=== PATIENT | male | born 1960 | race Caucasian/White ===

== ENCOUNTER 2018-06-18 08:36 | Day surgery (SDC) | payer BC ==
[~2018-06-18] VITALS: Ht 182.9 cm; Wt 99.8 kg
--- NOTE | ~2018-06-18 | OP ---
PATIENT NAME: RERE ODONNELL MEDICAL RECORD: [id number] :60 LOCATION:[facility]GE ADMISSION DATE: SURGEON: PATSY WADE MD DATE OF OPERATION: 06/18/2018 PREOPERATIVE DIAGNOSES: Bilateral nasal polyposis, nasal obstruction, septal deviation and bilateral inferior turbinate hypertrophy. POSTOPERATIVE DIAGNOSES: Bilateral nasal polyposis, nasal obstruction, septal deviation and bilateral inferior turbinate hypertrophy. PROCEDURES: 1. Septoplasty. 2. Bilateral endoscopic nasal polypectomy. 3. Bilateral inferior turbinate reduction. SURGEON: Patsy Wade MD ANESTHESIA: General orotracheal. BLOOD LOSS: 20 cc. SPECIMENS: Nasal polyps from right and left side of the nose. NASAL PACKING: Pablo splints bilaterally. COMPLICATIONS: None. DISPOSITION: Recovery stable. PROCEDURE IN DETAIL: He was brought to the operating room and placed in supine position, sedated and intubated by anesthesia. Both sides of the nose were examined in a headlight and nasal speculum. Inferior turbinates, nasal septum, floor of the nose and the visible polyps were injected with a total of 1.5 cc of 1% lidocaine with 1:100,000 epinephrine along 27-gauge needle. Two Afrin pledgets were placed in each side of the nose. He was positioned, prepped and draped in usual fashion for nasal surgery. Then, all the Afrin pledgets were removed. Using the scope, the left side of the nose was addressed first and large inferior turbinates, severe septal spur to that side, but the polyps were clearly visible. Straight biting pediatric forceps was used to grasp and remove several large polyps for pathology. Then, microdebrider was used to remove massive amount of polyps from the middle meatus and the middle turbinate was lateralized and polyps from around the superior meatus were removed as well. The same was done on the right side, similar pattern of polyps, massive amount filling the entire middle meatus down to the inferior turbinate and then medial to the middle turbinate as well. Once they were all removed, Afrin pledgets were placed in the middle meatus bilaterally and then a [place] was used to take down the inferior redundant portion of the inferior turbinate bilaterally. Suction cautery was used to stop any bleeding and both outfractured with a [place] elevator. Then, a left-sided Lorimor incision was made on the septum. Ipsilateral mucoperichondrial flap was elevated. A large bony and cartilaginous spur with cartilage rolled out into the floor of the nose on the left side was isolated. The extra cartilage was removed with a caudal elevator and then the bone was removed with a chisel. Relaxing incisions were made in the cartilage. This allowed the septum to fall back into the midline. The Lorimor incision was OPERATIVE REPORT [id number] RERE ODONNELL closed with interrupted 4-0 chromic. The nasopharynx was suctioned. The Afrin pledgets were removed from the middle meatus bilaterally and the area was suctioned. It was clean and dry. Blood pressure was running about 98 systolic. Not much bleeding, but some FloSeal was placed in the middle meatus and superior meatus where base of the polyps that have been resected were removed and then some Pablo splints were placed bilaterally with some mupirocin ointment and sutured to the anterior membranous septum with a 2-0 Prolene on a Russell needle. Eye exam was normal. The pharynx was suctioned. He was awakened, extubated, and transported to recovery in good condition. No complications. TRANSINT:[id number] Voice Confirmation ID: [id number] DOCUMENT ID: [id number] PATSY WADE MD at 1616 CC: [id number] DICTATION DATE: 06/18/18 1457 ENROBER: 06/18/18 1545 REG [facility] [address] [place] [address]
--- NOTE | ~2018-06-18 | HP ---
PATIENT: RREE ODONNELL MEDICAL RECORD: [id number] ACCOUNT: [id number] LOCATION:ROGE : 60 ADMISSION DATE: 06/18/18 PCP: DANNY HOLT MD HISTORY AND PHYSICAL EXAMINATION HISTORY: Mr. Odonnell is a 58-year-old male. He has been having significant problems with nasal obstruction. He has been found to have septal deviation, large inferior turbinates, and bilateral nasal polyps. He is being admitted for septoplasty, bilateral inferior turbinate reduction, and bilateral nasal polypectomy. PAST MEDICAL HISTORY: Includes hypertension and seasonal allergies. PAST SURGICAL HISTORY: Includes back surgery in 2006 and cholecystectomy in 2013. SOCIAL HISTORY: He does chew tobacco. CURRENT MEDICATIONS: Citalopram, carisoprodol, zolpidem, metoprolol, lansoprazole, and hydrochlorothiazide. ALLERGIES: No known drug allergies. PHYSICAL EXAMINATION: GENERAL: He is healthy appearing and developmentally normal. FACE: Normal and symmetric. No lesions. EYES: Sclerae and conjunctivae are normal. EARS: Canals and TMs are normal. NOSE: He has large turbinates, septal deviation, and bilateral nasal polyps on endoscopy. CHEST: Clear. CARDIOVASCULAR: Regular rate and rhythm. No murmur. EXTREMITIES: Normal. IMPRESSION: Nasal obstruction, septal deviation, bilateral turbinate hypertrophy, allergic rhinitis, nasal polyps, and obstruction. PLAN: Septoplasty, bilateral inferior turbinate reduction, and bilateral endoscopic nasal polypectomy. TRANSINT:[id number] Voice Confirmation ID: [id number] DOCUMENT ID: [id number] PATSY PERSAUD MD at 1616 CC: [id number] DICTATION DATE: 06/16/18 1558 FIRE EXTINGUISHER INSTALLER: 06/16/18 1610 REG [facility] [address] [place] [id number]
[2018-06-18 09:05] LABS: HEMATOCRIT 43.4 % (42.0-54.0); HEMOGLOBIN 15.9 g/dL (13.5-17.5); MCH 32.1 pg (26.0-34.0); MCHC 36.6 g/dL (31.0-37.0); MCV 87.5 fL (80.0-100.0); MEAN PLATELET VOLUME 9.4 fL (7.4-10.4); RBC 4.96 10x6/uL (4.20-6.10); WBC 4.2 10x3/uL (4.8-10.8)
[2018-06-18] MEDS ORDERED: SOMA350 MG PO (10:15)
[2018-06-18] MEDS ORDERED: CELEXA20 MG PO (10:16)
[2018-06-18] MEDS ORDERED: TOPROL XL25 MG PO (10:16)
[2018-06-18] MEDS ORDERED: AMBIEN10 MG PO (10:16)
[2018-06-18] MEDS ORDERED: HYDROCHLOROTH12.5 M1 PO (10:17)
[2018-06-18] MEDS ORDERED: PREVACID30 MG (10:17)
[2018-06-18 10:26] VITALS: BP 147/93; Ht 182.9 cm; Wt 99.8 kg
== END 2018-06-18 16:33 | disposition home or self-care (01) ==
LOC: D.OPS 08:36
PROVIDERS: Anesthesiology
DX: J33.0 Polyp of nasal cavity (principal); J34.89 Other specified disorders of nose and nasal sinuses; J34.2 Deviated nasal septum; J34.3 Hypertrophy of nasal turbinates; I10 Essential (primary) hypertension; F17.220 Nicotine dependence, chewing tobacco, uncomplicated; Z79.899 Other long term (current) drug therapy; Z01.812 Encounter for preprocedural laboratory examination

== ENCOUNTER → 2021-03-11 07:30 | Outpatient (CLI) | payer BC ==
[2018-06-18 10:26] VITALS: BMI 29.9
[~2021-03-11 07:30] MED LIST: AMBIEN10 MG PO; CELEXA20 MG PO; HYDROCHLOROTH12.5 M1 PO; PREVACID30 MG; SOMA350 MG PO; TOPROL XL25 MG PO
== END | disposition home or self-care (01) ==
LOC: D.NM 07:30
PROVIDERS: ATTEND Internal Medicine Gastroenterology
DX: R19.7 Diarrhea, unspecified (principal); R13.10 Dysphagia, unspecified; R14.0 Abdominal distension (gaseous); K21.9 Gastro-esophageal reflux disease without esophagitis; R68.81 Early satiety; R11.0 Nausea

== ENCOUNTER → 2021-03-14 12:21 | Outpatient (CLI) | payer BC ==
[2018-06-18 10:26] VITALS: BMI 29.9
== END | disposition home or self-care (01) ==
LOC: D.RAD 12:21
PROVIDERS: ATTEND Internal Medicine Gastroenterology
DX: R19.7 Diarrhea, unspecified (principal); R13.10 Dysphagia, unspecified; R14.0 Abdominal distension (gaseous); K21.9 Gastro-esophageal reflux disease without esophagitis; R68.81 Early satiety; R11.0 Nausea